=== PATIENT | female | born 1955 | race Hispanic/Latino ===

== ENCOUNTER → 2018-03-07 | Outpatient (CLI) | payer BC ==
[~2018-03-07] MED LIST: ASPIR 8181 MG PO; CLOPIDOGREL75 MG PO; ISOSORBIDE MONO20 MG PO; LISINOPRIL20 MG PO; METOPROLOL TART25 MG PO; PRAVASTATIN SOD40 MG PO
--- NOTE | 2018-03-28 08:45 | Diagnostic Imaging Report ---
#[id number] - MGSCRBIL #BILATERAL DIGITAL SCREENING MAMMOGRAM WITH CAD: 03/07/2018 CLINICAL: Routine screening. Comparison is made to exams dated: 03/14/2017 mammogram and 03/04/2015 mammogram - [facility]. Current study contains 4 films. There are scattered fibroglandular elements in both breasts. Current study was also evaluated with a Computer Aided Detection (CAD) system. There are benign calcifications in both breasts. There also are post operative findings in the left breast with multiple surgical clips present from a breast reconstruction. No significant masses, calcifications, or other findings are seen in either breast. There has been no significant interval change. IMPRESSION: BENIGN There is no mammographic evidence of malignancy. A 1 year screening mammogram is recommended. The patient will be notified by letter of the results. Santiago Garnett Jr., D.O. cw/:03/27/2018 08:58:54 Interventional Tech: Abida CLARK(R)(M), [facility] letter sent: Compared to Prior B9 Mammogram BI-RADS: 2 Benign
== END ==
LOC: MAMMO 15:50
PROVIDERS: ATTEND Family Medicine
DX: Z12.31 Encounter for screening mammogram for malignant neoplasm of breast (principal)
CPT/HCPCS: 77067

== ENCOUNTER → 2019-03-11 | Outpatient (CLI) | payer BC | LOC: MAMMO 16:02 | PROVIDERS: ATTEND Obstetrics & Gynecology | DX: Z12.31 Encounter for screening mammogram for malignant neoplasm of breast (principal) | CPT/HCPCS: 77067 ==

== ENCOUNTER → 2020-02-24 | Outpatient (CLI) | payer BC | LOC: MAMMO 12:39 | PROVIDERS: ATTEND Family Medicine | DX: Z12.31 Encounter for screening mammogram for malignant neoplasm of breast (principal) | CPT/HCPCS: 77067 ==

== ENCOUNTER → 2021-01-12 | Day surgery (SDC) | payer BC ==
[2021-01-11 08:35] LABS: BASOPHILS % 0.8 % (0.0-1.0); EOSINOPHILS # (AUTO) 0.2 (0.0-0.4); EOSINOPHILS % 4.1 % (0.0-6.0); HEMATOCRIT 39.4 % (34.2-44.1); HEMOGLOBIN 12.9 g/dL (12.0-16.0); LYMPHOCYTES # (AUTO) 1.7 (1.0-3.2); LYMPHOCYTES % 33.2 % (18.0-39.1); MEAN CORPUSCULAR HEMOGLOBIN 28.7 pg (28-32); MEAN CORPUSCULAR HGB CONC 32.7 g/dL (31-35); MEAN CORPUSCULAR VOLUME 87.6 fL (81-99); MONOCYTES # (AUTO) 0.6 (0.2-0.8); MONOCYTES % 10.7 % (4.4-11.3); NEUTROPHILS # (AUTO) 2.6 (2.1-6.9); NEUTROPHILS % 50.8 % (38.7-80.0); PLATELET COUNT 219 x10e3/uL (140-360); RED CELL DISTRIBUTION WIDTH 13.7 % (11.7-14.4)
[2021-01-11 08:52] LABS: INR 0.92; PROTHROMBIN TIME 12.6 seconds (11.9-14.5)
[2021-01-11 08:53] LABS: PARTIAL THROMBOPLASTIN TIME 27.9 seconds (23.8-35.5)
[2021-01-11 09:04] LABS: ANION GAP 15.2 mmol/L (8-16); CALCIUM 9.3 mg/dL (8.4-10.2); CREATININE, SERUM 0.72 mg/dL (0.57-1.11); POTASSIUM 4.2 mmol/L (3.5-5.1)
[~2021-01-12] MED LIST changes: +BUPIVACAINE 0.25% 30ML SDV ONE; +CEPHALEXIN250 MG PO; +CITRACAL + BON1 EACH PO; +CRESTOR10 MG PO; +DIOVAN80 MG PO; +NEOSTIGMINE 1 MG/ML 10ML VIAL ONE; +SODIUM CHLORIDE 0.9% 50ML 100 ML ONE; +VITAMIN C500 MG PO; +Vancomycin IV 0 MG ONE
[2021-01-12 07:50] VITALS: BP 118/67
== END | disposition home or self-care (01) ==
LOC: OR 05:39
PROVIDERS: ATTEND Orthopaedic Surgery
DX: S67.01XA Crushing injury of right thumb, initial encounter (principal); S61.111A Laceration without foreign body of right thumb with damage to nail, initial encounter; L03.011 Cellulitis of right finger; I10 Essential (primary) hypertension; I25.10 Atherosclerotic heart disease of native coronary artery without angina pectoris; R00.1 Bradycardia, unspecified; E66.01 Morbid (severe) obesity due to excess calories; X58.XXXA Exposure to other specified factors, initial encounter; Z91.040 Latex allergy status; Z01.810 Encounter for preprocedural cardiovascular examination; Z01.812 Encounter for preprocedural laboratory examination; Z20.822 Contact with and (suspected) exposure to COVID-19; Z79.82 Long term (current) use of aspirin; Z79.02 Long term (current) use of antithrombotics/antiplatelets; Z68.35 Body mass index [BMI] 35.0-35.9, adult
CPT/HCPCS: 11760; 36415; 80048; 85025; 85610; 85730; 93005; J0690; J2710; U0002; J3370

== ENCOUNTER → 2021-02-19 | Outpatient (CLI) | payer BC ==
[~2021-02-19] MED LIST changes: -BUPIVACAINE 0.25% 30ML SDV ONE; -NEOSTIGMINE 1 MG/ML 10ML VIAL ONE; -SODIUM CHLORIDE 0.9% 50ML 100 ML ONE; -Vancomycin IV 0 MG ONE
== END ==
LOC: MAMMO 13:42
PROVIDERS: ATTEND Family Medicine
DX: Z12.31 Encounter for screening mammogram for malignant neoplasm of breast (principal)
CPT/HCPCS: 77067

== ENCOUNTER → 2022-02-22 | Outpatient (CLI) | payer BC | LOC: MAMMO 15:19 | PROVIDERS: ATTEND Family Medicine | DX: Z12.31 Encounter for screening mammogram for malignant neoplasm of breast (principal) | CPT/HCPCS: 77067 ==

== ENCOUNTER → 2024-02-26 | Outpatient (REF) | payer MEDICARE | LOC: MAMMO 15:23 | PROVIDERS: ATTEND Obstetrics & Gynecology | DX: Z12.31 Encounter for screening mammogram for malignant neoplasm of breast (principal) | CPT/HCPCS: 77067 ==

== ENCOUNTER 2025-01-10 10:20 | Inpatient (IN) | payer MEDICARE ==
[~2025-01-10] VITALS: Ht 154.9 cm; Wt 82.6 kg
[2025-01-10 10:30] VITALS: TEMP 98.2
[2025-01-10] MEDS: SODIUM CHLORIDE 0.9% 1000ML 1,000 ML IV STA (11:06)
[2025-01-10] MEDS: ONDANSETRON HCL INJ 2MG/ML 2ML 2 MG/ML VIAL IV PRN (11:07)
[2025-01-10] MEDS: DICYCLOMINE HCL 20 MG/2 ML VIAL IM ONE (11:07)
[2025-01-10 11:30] LABS: BASOPHILS % 0.2 % (0.0-1.0); EOSINOPHILS % 0.0 % (0.0-6.0); LYMPHOCYTES % 6.8 % (18.0-39.1); MONOCYTES % 7.1 % (4.4-11.3); NEUTROPHILS % 85.4 % (38.7-80.0); RED CELL DISTRIBUTION WIDTH 13.7 % (11.7-14.4)
[2025-01-10] MEDS: FENTANYL CITRATE/PF 100MCG/2 ML INJ IV PRN (12:09)
[2025-01-10 12:28] LABS: EST GLOMERULAR FILTRATION RATE 90.0 ML/MIN (>=60)
[2025-01-10 12:32] LABS: LEUKOCYTE ESTERASE ,URINE NEGATIVE (NEGATIVE)
[2025-01-10 12:33] LABS: EPITHELIAL CELLS,URINE FEW /LPF; PROTEIN,URINE DIPSTICK 2+ (NEGATIVE); URINE UROBILINOGEN 0.2 mg/dL (0.2 - 1)
[2025-01-10] MEDS ORDERED: IOPAMIDOL 370 MG/ML 100 ML INFUS..BTL INJ ONE (14:09)
[2025-01-10] MEDS ORDERED: SODIUM CHLORIDE 0.9% 1000ML 1,000 ML IV SCH (16:15)
[2025-01-10] MEDS ORDERED: Morphine 4mg INJECTION 4 MG/ML INJ IV PRN (16:15)
[2025-01-10] MEDS ORDERED: ONDANSETRON HCL INJ 2MG/ML 2ML 2 MG/ML VIAL IV PRN (16:15)
[2025-01-10] MEDS ORDERED: POTASSIUM CHLORIDE 20 MEQ TAB CR PO PRN (17:15)
[2025-01-10] MEDS ORDERED: BENZONATATE 100 MG CAP PO PRN (17:15)
[2025-01-10] MEDS ORDERED: ALBUTEROL/IPRATROPIUM 3 ML NEB NEB PRN (17:15)
[2025-01-10] MEDS ORDERED: HYDRALAZINE HCL 20 MG/ML VIAL IV PRN (17:15)
[2025-01-10] MEDS ORDERED: MELATONIN 5 MG TABLET PO PRN (17:15)
[2025-01-10] MEDS ORDERED: LIDOCAINE 4% PATCH TP PRN (17:15)
[2025-01-10] MEDS ORDERED: DEXTROSE 50% SYRINGE 50 ML IV PRN ×2 (17:15→17:30)
[2025-01-10 17:20] VITALS: PULSE 72; RESP 21
[2025-01-10] MEDS: INSULIN LISPRO 100 UNIT/1 ML 3ML VIAL SQ SCH (17:30)
[2025-01-10] MEDS: FENTANYL CITRATE/PF 100MCG/2 ML INJ IV ONE (17:46)
[2025-01-10 20:00] VITALS: BP 132/72; PULSE 68; RESP 18; TEMP 98; O2SAT 96
[2025-01-10 21:16] VITALS: BP 132/72; PULSE 68; RESP 18; TEMP 98; O2SAT 96
[2025-01-10] MEDS: HYDROMORPHONE 1MG/1ML INJ IV PRN (22:34)
[2025-01-10] MEDS: DEXTROSE 5%/0.9% SOD CHL 1,000 ML IV SCH (22:35)
[2025-01-10] MEDS ORDERED: SEVOFLURANE INHAL SOLN 250 ML PEN BTL ONE (22:35)
[2025-01-11] VITALS (10 sets, daily range): BP systolic 101–125; BP diastolic 52–73; PULSE 61–87; RESP 16–18; TEMP 97.7–100.4; O2SAT 95–100
[2025-01-11] MEDS ORDERED: VITAMIN D250 MCG PO (02:23)
[2025-01-11] MEDS ORDERED: MAGNESIUM250 MG PO (02:23)
[2025-01-11] MEDS ORDERED: BACLOFEN10 MG PO (02:23)
[2025-01-11] MEDS ORDERED: METOPROLOL SUCC50 MG PO (02:23)
[2025-01-11] MEDS ORDERED: TRIAMCINOLONE A15 G2 TOP (02:23)
[2025-01-11] MEDS ORDERED: CALCIDOL200 MCG/1 (02:23)
[2025-01-11] MEDS ORDERED: ONDANSETRON ODT4 MG PO (02:23)
[2025-01-11] MEDS ORDERED: ROCURONIUM BROMIDE 1 ML IV ONE (06:49)
[2025-01-11] MEDS ORDERED: LIDOCAINE HCL 2% LOCAL INJ 5 ML SDV VIAL INJ ONE (06:49)
[2025-01-11] MEDS ORDERED: FENTANYL CITRATE/PF 100MCG/2 ML INJ ONE (06:49)
[2025-01-11] MEDS ORDERED: PROPOFOL IV EMULSION 10 MG/ML 20 ML VIAL ONE (06:50)
[2025-01-11] MEDS ORDERED: SUCCINYLCHOLINE CHLORIDE 20 MG/ML 10ML VIAL ONE (06:50)
[2025-01-11] MEDS ORDERED: Morphine 10mg syringe 10 MG/ML INJ ONE (07:26)
[2025-01-11] MEDS ORDERED: SUGAMMADEX SODIUM 200 MG/2 ML VIAL IV ONE (07:36)
[2025-01-11] MEDS ORDERED: ONDANSETRON HCL INJ 2MG/ML 2ML 2 MG/ML VIAL IV PRN (08:00)
[2025-01-11] MEDS: ONDANSETRON HCL INJ 2MG/ML 2ML 2 MG/ML VIAL IV ONE (08:10)
[2025-01-11 09:26] LABS: BASOPHILS % 0.3 % (0.0-1.0); EOSINOPHILS % 0.0 % (0.0-6.0); LYMPHOCYTES % 6.7 % (18.0-39.1); MONOCYTES % 5.7 % (4.4-11.3); NEUTROPHILS % 87.0 % (38.7-80.0); RED CELL DISTRIBUTION WIDTH 14.4 % (11.7-14.4)
[2025-01-11] MEDS: ONDANSETRON HCL INJ 2MG/ML 2ML 2 MG/ML VIAL ONE (09:39)
[2025-01-11] MEDS: PANTOPRAZOLE SOD 40 MG TABEC PO SCH (09:52)
[2025-01-11 10:43] LABS: EST GLOMERULAR FILTRATION RATE 66.0 ML/MIN (>=60)
[2025-01-11 14:13] LABS: BAND NEUTROPHILS % (MANUAL) 12 %; BASOPHILS % (MANUAL) 2 % (0-1.5); LYMPHOCYTES % (MANUAL) 15 % (19-48); MONOCYTES % (MANUAL) 2 % (3.4-9.0); NEUTROPHILS % (MANUAL) 69 % (40-74); PLATELET ESTIMATE ADEQUATE; PLATELET MORPHOLOGY COMMENT NORMAL; RBC MORPHOLOGY COMMENT NORMAL
[2025-01-11] MEDS: HYDROCODONE/APAP 5MG-325MG TAB PO PRN (16:11)
[2025-01-11] MEDS: ENOXAPARIN SOD INJ 40 MG/0.4 ML SYR SC SCH (16:11)
[2025-01-11] MEDS ORDERED: ENOXAPARIN SOD INJ 40 MG/0.4 ML SYR SC SCH (17:00)
[2025-01-12] VITALS (11 sets, daily range): BP systolic 115–171; BP diastolic 61–86; PULSE 63–72; RESP 16–24; TEMP 97.6–98.6; O2SAT 93–98
[2025-01-12 08:53] LABS: BASOPHILS % 0.2 % (0.0-1.0); EOSINOPHILS % 0.0 % (0.0-6.0); LYMPHOCYTES % 7.8 % (18.0-39.1); MONOCYTES % 6.2 % (4.4-11.3); NEUTROPHILS % 85.6 % (38.7-80.0); RED CELL DISTRIBUTION WIDTH 14.6 % (11.7-14.4)
[2025-01-12] MEDS: DOCUSATE SODIUM 100 MG CAP PO PRN (08:53)
[2025-01-12 09:05] LABS: EST GLOMERULAR FILTRATION RATE 86.0 ML/MIN (>=60)
[2025-01-12] MEDS: DIPHENHYDRAMINE HCL 25 MG CAP PO PRN (12:54)
[2025-01-12] MEDS: METOPROLOL SUCCINATE 50 MG TAB XL PO SCH (23:46)
[2025-01-12] MEDS: ISOSORBIDE MONONITRATE 30 MG TAB CR PO SCH (23:46)
[2025-01-12] MEDS: VALSARTAN 80 MG TAB PO SCH (23:46)
[2025-01-13] VITALS (10 sets, daily range): BP systolic 125–161; BP diastolic 67–83; PULSE 55–74; RESP 16–19; TEMP 97.9–98.6; O2SAT 94–97
[2025-01-13 05:55] LABS: BASOPHILS % 0.7 % (0.0-1.0); EOSINOPHILS % 0.8 % (0.0-6.0); LYMPHOCYTES % 9.3 % (18.0-39.1); MONOCYTES % 7.3 % (4.4-11.3); NEUTROPHILS % 81.4 % (38.7-80.0); RED CELL DISTRIBUTION WIDTH 14.6 % (11.7-14.4)
[2025-01-13 06:09] LABS: EST GLOMERULAR FILTRATION RATE 93.0 ML/MIN (>=60)
[2025-01-13] MEDS: ACETAMINOPHEN 325 MG TAB PO PRN (16:30)
[2025-01-13] MEDS: SIMETHICONE 80 MG CHEW PO PRN (16:31)
[2025-01-14] VITALS: BP 166/74; PULSE 62; RESP 19; TEMP 99.6; O2SAT 90
[2025-01-14 04:00] VITALS: BP 167/81; PULSE 100; RESP 18; TEMP 98.9; O2SAT 98
[2025-01-14 08:06] VITALS: PULSE 64; RESP 16; O2SAT 94
[2025-01-14 08:59] VITALS: BP 158/77; PULSE 64; RESP 18; TEMP 98.4; O2SAT 95
[2025-01-14] MEDS ORDERED: SIMVASTATIN 40 MG TAB PO SCH (09:00)
[2025-01-14 09:07] VITALS: BP 158/77; PULSE 64; RESP 18; TEMP 98.4; O2SAT 95
[2025-01-14] MEDS: ASPIRIN 81 MG CHEW TAB PO SCH (09:25)
[2025-01-14] MEDS: CLOPIDOGREL BISULFATE 75 MG TAB PO SCH (09:26)
[2025-01-14] MEDS: CRESTOR 10MG PO SCH (09:26)
[2025-01-14 13:14] VITALS: BP 144/80; PULSE 69; RESP 18; TEMP 98.6; O2SAT 95
== END 2025-01-14 16:00 | disposition home or self-care (01) | DRG 853 ==
LOC: ER 10:29 → ERHOLD 16:08 → MED/SURG 19:29
PROVIDERS: ADMIT Internal Medicine; ATTEND Internal Medicine
PROC: 3E0333Z Introduction of Anti-inflammatory into Peripheral Vein, Percutaneous Approach (ICD-10-PCS; 2025-01-10)
PROC: 0DTJ4ZZ Resection of Appendix, Percutaneous Endoscopic Approach (ICD-10-PCS; principal; 2025-01-11 07:02)
DX: A41.9 Sepsis, unspecified organism (principal); K35.33 Acute appendicitis with perforation, localized peritonitis, and gangrene, with abscess; R73.03 Prediabetes; I10 Essential (primary) hypertension; E78.5 Hyperlipidemia, unspecified; I25.10 Atherosclerotic heart disease of native coronary artery without angina pectoris; E66.9 Obesity, unspecified; Z68.34 Body mass index [BMI] 34.0-34.9, adult; Z79.82 Long term (current) use of aspirin; Z79.02 Long term (current) use of antithrombotics/antiplatelets; Z85.3 Personal history of malignant neoplasm of breast; Z90.10 Acquired absence of unspecified breast and nipple; Z91.040 Latex allergy status
CPT/HCPCS: 36415; 74177; 80048; 80053; 81001; 82948; 83605; 83690; 85025; 87040; 87086; 88304; 94799; 99284; J0330; J1171; J1650; J2003; J2270; J2405; J2470; J2543; J7030; J7042; Q9967